=== PATIENT | male | born 1955 | race Caucasian/White ===

== ENCOUNTER 2017-06-19 09:24 | Emergency (ER) | payer BC ==
[~2017-06-19] VITALS: Ht 193 cm; Wt 90.7 kg
[~2017-06-19 09:24] MED LIST: AMOXICILLIN500 MG PO
[2017-06-19] MEDS ORDERED: KEFLEX500 M1 PO (09:37)
[2017-06-19] MEDS ORDERED: NAPROSYN500 MG PO (09:37)
== END 2017-06-19 09:47 | disposition home or self-care (01) ==
LOC: ED 09:24
DX: S61.412A Laceration without foreign body of left hand, initial encounter (principal); R03.0 Elevated blood-pressure reading, without diagnosis of hypertension; Z23 Encounter for immunization; W45.8XXA Other foreign body or object entering through skin, initial encounter; Y93.89 Activity, other specified; Y92.89 Other specified places as the place of occurrence of the external cause; Y99.8 Other external cause status

== ENCOUNTER → 2017-12-03 | Day surgery (SDC) | payer BC ==
[~2017-12-03] VITALS: Ht 187.9 cm; Wt 90.7 kg
[~2017-12-03] MED LIST changes: +ASPIRIN81 M1 PO; +CYCLOBENZAPRINE10 MG PO; +KEFLEX500 M1 PO; +LOSARTAN-HCTZ1 EACH PO; +NAPROSYN500 MG PO; +TOPCARE OMEPRAZ20 MG PO
--- NOTE | ~2017-12-03 | PROC NOTE ---
[place], [place] PROCEDURE NOTE NAME: DAVE HAQ [facility] #: [id number] UNIT #: [id number] ROOM: DOCTOR: ROBY LANDEROS MD BIRTHDATE: [birth year] DOS: PROCEDURES: 1. Esophagogastroduodenoscopy and biopsy. 2. Colonoscopy. INDICATIONS: GERD and colon cancer screening. An informed consent was obtained from the patient after indication of procedure, the alternatives and potential complications were explained to him. PROCEDURE MEDICATIONS: Sedation was administered by Anesthesiology Department. SCOPE USED: For upper endoscopy was Olympus diagnostic upper endoscope GIF-180, depth of insertion was to the descending duodenum. With the colonoscopy, the scope used was Olympus pediatric colonoscope variable stiffness GIF-180, depth of insertion was to the cecum, which was identified by the usual landmarks, appendiceal orifice, ileocecal valve and triangular fold, in addition to transillumination in the right lower quadrant. FINDINGS: After adequate sedation, the patient was placed in left lateral decubitus position. Rectal examination showed normal sphincter tone and no external hemorrhoids. After adequate sedation, the patient was placed in left lateral decubitus position. Upper endoscopy was performed first. The scope was introduced under direct visualization through the upper esophageal sphincter into the esophagus. Esophageal mucosa appeared normal with no ulcerations or strictures. Lower esophageal sphincter was identified at 38 cm from incisors with normal appearing Z line. The stomach was then intubated and gastric mucosa inspected. Moderate gastritis was seen. No discrete ulcers or active bleeding. A CLOtest was performed from the gastric antrum and body. On retroflexed views in fundus, no hiatal hernia was seen. Pylorus was intubated easily. The duodenal bulb and descending duodenum were within normal range. Scope was then withdrawn after the stomach was decompressed. We then proceeded with the colonoscopy. Rectal examination showed a diminished sphincter tone and no external hemorrhoids. Scope was introduced into the rectum, then advanced in to the cecum without difficulty. The prep was adequate. Moderate left-sided diverticular disease was noted. The remaining colon mucosa appeared otherwise normal with no evidence of polyps, ulcerations or obstructing lesions. Retroflexed views in the rectum showed grade 1 internal hemorrhoids. The scope was then withdrawn after the rectum was decompressed. The patient tolerated the procedures well. IMPRESSION: 1. Moderate gastritis, CLOtest. 2. Moderate left-sided diverticular disease. 3. Small internal hemorrhoids. 4. Normal colon mucosa otherwise. PLAN: We will review the BONITA test results and treat the patient accordingly. Repeat screening colonoscopy is advised in 10 years. Office followup will be [place], [place] PROCEDURE NOTE NAME: DAVE HAQ UNIT #: [id number] ROOM: DOCTOR: ROBY LANDEROS MD BIRTHDATE: [birth year] scheduled in 2-3 weeks. ROBY LANDEROS MD CM:PROCNOTE:PROCEDURE NOTE [id number] MARINE LANDEROS MD
[2017-12-03 07:00] VITALS: BP 158/83
[2017-12-03 08:50] VITALS: BP 114/69
[2017-12-03 09:05] VITALS: BP 117/70
[2017-12-03 09:20] VITALS: BP 136/72
== END | disposition home or self-care (01) ==
LOC: SDC 11-09 11:00
DX: Z12.11 Encounter for screening for malignant neoplasm of colon (principal); K29.70 Gastritis, unspecified, without bleeding; K57.30 Diverticulosis of large intestine without perforation or abscess without bleeding; K64.8 Other hemorrhoids; I10 Essential (primary) hypertension; K21.9 Gastro-esophageal reflux disease without esophagitis; Z98.890 Other specified postprocedural states; Z79.899 Other long term (current) drug therapy

== ENCOUNTER → 2018-03-25 | Outpatient (CLI) | payer BC ==
[2018-03-25 10:33] LABS: BASO % 0.5 % (0.0-1.0); EOS # 0.2 10*3/uL (0.0-0.4); EOS % 2.2 % (1.0-4.0); HEMATOCRIT 46.6 % (42.0-52.0); HEMOGLOBIN 15.3 g/dl (14.0-18.0); LYMPH % 23.7 % (27.0-41.0); MEAN CELL VOLUME 93.6 fl (80.0-94.0); MEAN CORPUSCULAR HGB 30.7 pg (27.0-31.0); MEAN CORPUSCULAR HGB CONC 32.8 g/dl (33.0-37.0); MEAN PLATELET VOLUME 11.5 fl (9.6-12.3); MONO # 0.7 10*3/uL (0.1-1.0); MONO % 7.7 % (3.0-9.0); NEUT # 5.6 10*3/uL (2.3-7.9); NEUT % 65.3 % (47.0-73.0); PLATELET COUNT AUTOMATED 205 10*3/uL (130-400); RED BLOOD COUNT 4.98 10*6/uL (4.50-5.90); RED CELL DISTRI WIDTH 12.9 % (0-14.5); WHITE BLOOD COUNT 8.5 10*3/uL (4.8-10.8)
[2018-03-25 10:51] LABS: ALBUMIN 3.8 gm/dl (3.1-4.5); ALKALINE PHOSPHATASE 56 U/L (45-117); BUN 20 mg/dl (7-24); CHLORIDE 105 mmol/L (98-107); CHOLESTEROL 202 mg/dL (<200); CREATININE 1.18 mg/dL (0.70-1.30); HDL CHOLESTEROL 37 mg/dl (40-60); LDL CHOLESTEROL 130 mg/dL (9-159); POTASSIUM 4.1 mmol/L (3.5-5.1); SGOT/AST 16 IU/L (3-35); SGPT/ALT 30 U/L (12-78); SODIUM 141 mmol/L (136-145); TOTAL PROTEIN 7.4 gm/dL (6.4-8.2); TRIGLYCERIDES 175 mg/dl (<150); VLDL CHOLESTEROL 35 mg/dL (6-40)
== END | disposition home or self-care (01) ==
LOC: LAB 09:48
PROVIDERS: Family Medicine
DX: Z11.59 Encounter for screening for other viral diseases (principal); I10 Essential (primary) hypertension

== ENCOUNTER → 2019-04-12 | Outpatient (CLI) | payer BC ==
[2019-04-12 13:33] LABS: BASO % 0.3 % (0.0-1.0); EOS # 0.2 10*3/uL (0.0-0.4); EOS % 2.5 % (1.0-4.0); HEMATOCRIT 45.7 % (42.0-52.0); HEMOGLOBIN 14.7 g/dl (14.0-18.0); LYMPH # 1.9 10*3/uL (1.3-4.4); LYMPH % 21.4 % (27.0-41.0); MEAN CELL VOLUME 96.2 fl (80.0-94.0); MEAN CORPUSCULAR HGB 30.9 pg (27.0-31.0); MEAN CORPUSCULAR HGB CONC 32.2 g/dl (33.0-37.0); MEAN PLATELET VOLUME 11.2 fl (9.6-12.3); MONO # 0.7 10*3/uL (0.1-1.0); MONO % 7.5 % (3.0-9.0); NEUT # 5.9 10*3/uL (2.3-7.9); NEUT % 67.8 % (47.0-73.0); PLATELET COUNT AUTOMATED 218 10*3/uL (130-400); RED BLOOD COUNT 4.75 10*6/uL (4.50-5.90); RED CELL DISTRI WIDTH 12.6 % (0-14.5); WHITE BLOOD COUNT 8.6 10*3/uL (4.8-10.8)
[2019-04-12 13:59] LABS: ALBUMIN 3.8 gm/dl (3.1-4.5); ALKALINE PHOSPHATASE 57 U/L (45-117); BUN 16 mg/dl (7-24); CHLORIDE 105 mmol/L (98-107); CHOLESTEROL 187 mg/dL (<200); CREATININE 1.09 mg/dL (0.70-1.30); HDL CHOLESTEROL 35 mg/dl (40-60); LDL CHOLESTEROL 104 mg/dL (9-159); POTASSIUM 4.1 mmol/L (3.5-5.1); SGOT/AST 16 IU/L (3-35); SGPT/ALT 25 U/L (12-78); SODIUM 141 mmol/L (136-145); TOTAL PROTEIN 7.4 gm/dL (6.4-8.2); TRIGLYCERIDES 238 mg/dl (<150); VLDL CHOLESTEROL 48 mg/dL (6-40)
[2019-04-12 14:05] LABS: FREE T4 1.01 ng/dl (0.76-1.46)
[2019-04-12 14:22] LABS: VITAMIN D, 25-HYDROXY 25.2 ng/mL (30-100)
== END | disposition home or self-care (01) ==
LOC: LAB 13:00
PROVIDERS: Internal Medicine
DX: Z13.1 Encounter for screening for diabetes mellitus (principal); Z13.21 Encounter for screening for nutritional disorder; Z13.220 Encounter for screening for lipoid disorders; I10 Essential (primary) hypertension; M47.812 Spondylosis without myelopathy or radiculopathy, cervical region

== ENCOUNTER → 2019-05-12 | Outpatient (CLI) | payer BC | END | disposition home or self-care (01) | LOC: LAB 09:00 | DX: R97.20 Elevated prostate specific antigen [PSA] (principal) ==

== ENCOUNTER → 2019-11-10 | Outpatient (CLI) | payer BC | END | disposition home or self-care (01) | LOC: LAB 08:27 | DX: R97.20 Elevated prostate specific antigen [PSA] (principal) ==

== ENCOUNTER → 2020-04-20 | Outpatient (CLI) | payer BC ==
[2020-04-20 08:08] LABS: BASO % 0.3 % (0.0-1.0); EOS # 0.3 10*3/uL (0.0-0.4); EOS % 3.3 % (1.0-4.0); HEMATOCRIT 47.7 % (42.0-52.0); LYMPH # 1.4 10*3/uL (1.3-4.4); LYMPH % 18.9 % (27.0-41.0); MEAN CELL VOLUME 92.6 fl (80.0-94.0); MEAN CORPUSCULAR HGB 30.3 pg (27.0-31.0); MEAN CORPUSCULAR HGB CONC 32.7 g/dl (33.0-37.0); MEAN PLATELET VOLUME 11.1 fl (9.6-12.3); MONO # 0.5 10*3/uL (0.1-1.0); MONO % 6.9 % (3.0-9.0); NEUT # 5.3 10*3/uL (2.3-7.9); NEUT % 70.3 % (47.0-73.0); PLATELET COUNT AUTOMATED 206 10*3/uL (130-400); RED BLOOD COUNT 5.15 10*6/uL (4.50-5.90); RED CELL DISTRI WIDTH 12.4 % (0-14.5); WHITE BLOOD COUNT 7.6 10*3/uL (4.8-10.8)
[2020-04-20 08:28] LABS: ALBUMIN 3.7 gm/dl (3.1-4.5); ALKALINE PHOSPHATASE 67 U/L (45-117); BUN 16 mg/dl (7-24); CHLORIDE 110 mmol/L (98-107); CHOLESTEROL 181 mg/dL (<200); CREATININE 0.98 mg/dL (0.70-1.30); HDL CHOLESTEROL 39 mg/dl (40-60); LDL CHOLESTEROL 115 mg/dL (9-159); POTASSIUM 4.3 mmol/L (3.5-5.1); SGOT/AST 22 IU/L (3-35); SGPT/ALT 30 U/L (12-78); SODIUM 141 mmol/L (136-145); TOTAL PROTEIN 7.4 gm/dL (6.4-8.2); TRIGLYCERIDES 134 mg/dl (<150); VLDL CHOLESTEROL 27 mg/dL (6-40)
[2020-04-20 09:07] LABS: VITAMIN D, 25-HYDROXY 40.1 ng/mL (30-100)
== END | disposition home or self-care (01) ==
LOC: LAB 07:06
PROVIDERS: ATTEND Internal Medicine
DX: Z12.5 Encounter for screening for malignant neoplasm of prostate (principal); R53.81 Other malaise; E55.9 Vitamin D deficiency, unspecified; R74.8 Abnormal levels of other serum enzymes; R79.89 Other specified abnormal findings of blood chemistry; R70.0 Elevated erythrocyte sedimentation rate; R79.82 Elevated C-reactive protein (CRP); D51.9 Vitamin B12 deficiency anemia, unspecified

== ENCOUNTER → 2020-05-29 | Outpatient (CLI) | payer BC | END | disposition home or self-care (01) | LOC: LAB 15:17 | PROVIDERS: ATTEND Urology | DX: R97.20 Elevated prostate specific antigen [PSA] (principal) ==

== ENCOUNTER → 2020-07-08 | Outpatient (CLI) | payer BC | END | disposition home or self-care (01) | LOC: RAD 09:07 | PROVIDERS: ATTEND Urology | DX: N20.0 Calculus of kidney (principal) ==

== ENCOUNTER → 2020-07-18 | Outpatient (CLI) | payer BC ==
[2020-07-19 11:07] LABS: PROSTATE SPECIFIC AG FREE 0.65 ng/mL
== END | disposition home or self-care (01) ==
LOC: LAB 07-17 15:13
PROVIDERS: ATTEND Urology
DX: R97.20 Elevated prostate specific antigen [PSA] (principal)

== ENCOUNTER → 2021-01-13 | Outpatient (CLI) | payer BC | END | disposition home or self-care (01) | LOC: LAB 08:54 | PROVIDERS: ATTEND Urology | DX: R97.20 Elevated prostate specific antigen [PSA] (principal); N20.0 Calculus of kidney ==

== ENCOUNTER → 2021-03-16 | Outpatient (CLI) | payer BC ==
[2021-03-16 10:12] LABS: BASO % 0.4 % (0.0-1.0); EOS # 0.2 10*3/uL (0.0-0.4); EOS % 2.9 % (1.0-4.0); HEMATOCRIT 45.9 % (42.0-52.0); LYMPH % 25.8 % (27.0-41.0); MEAN CELL VOLUME 93.7 fl (80.0-94.0); MEAN CORPUSCULAR HGB 30.4 pg (27.0-31.0); MEAN CORPUSCULAR HGB CONC 32.5 g/dl (33.0-37.0); MEAN PLATELET VOLUME 11.5 fl (9.6-12.3); MONO # 0.6 10*3/uL (0.1-1.0); MONO % 7.3 % (3.0-9.0); NEUT # 4.8 10*3/uL (2.3-7.9); NEUT % 63.3 % (47.0-73.0); PLATELET COUNT AUTOMATED 201 10*3/uL (130-400); WHITE BLOOD COUNT 7.6 10*3/uL (4.8-10.8)
[2021-03-16 10:30] LABS: ALBUMIN 3.7 gm/dl (3.1-4.5); ALKALINE PHOSPHATASE 57 U/L (45-117); BUN 19 mg/dl (7-24); CHLORIDE 109 mmol/L (98-107); CHOLESTEROL 193 mg/dL (<200); CREATININE 0.94 mg/dL (0.70-1.30); LDL CHOLESTEROL 129 mg/dL (9-159); POTASSIUM 3.9 mmol/L (3.5-5.1); SGOT/AST 18 IU/L (3-35); SGPT/ALT 28 U/L (12-78); SODIUM 141 mmol/L (136-145); TOTAL PROTEIN 7.3 gm/dL (6.4-8.2); TRIGLYCERIDES 136 mg/dl (<150)
[2021-03-16 11:09] LABS: VITAMIN D, 25-HYDROXY 53.9 ng/mL (30-100)
[2021-03-18 14:07] LABS: PROSTATE SPECIFIC AG FREE 0.6 ng/mL; PROSTATE SPECIFIC AG, SERUM 3.9 ng/mL (0.0-4.0)
== END | disposition home or self-care (01) ==
LOC: LAB 09:10
PROVIDERS: Internal Medicine; ATTEND Urology
DX: Z00.00 Encounter for general adult medical examination without abnormal findings (principal); Z13.21 Encounter for screening for nutritional disorder; Z13.220 Encounter for screening for lipoid disorders; Z13.1 Encounter for screening for diabetes mellitus; Z12.5 Encounter for screening for malignant neoplasm of prostate; I10 Essential (primary) hypertension; E55.9 Vitamin D deficiency, unspecified; R97.20 Elevated prostate specific antigen [PSA]

== ENCOUNTER → 2021-09-17 | Outpatient (CLI) | payer OTHER | END | disposition home or self-care (01) | LOC: LAB 08:33 | PROVIDERS: ATTEND Urology | DX: R97.20 Elevated prostate specific antigen [PSA] (principal) ==

== ENCOUNTER → 2021-12-09 | Outpatient (CLI) | payer OTHER ==
[2021-12-12 17:06] LABS: FREE PSA 0.627 ng/mL (.)
== END | disposition home or self-care (01) ==
LOC: LAB 09:22
PROVIDERS: ATTEND Urology
DX: R97.20 Elevated prostate specific antigen [PSA] (principal)

== ENCOUNTER → 2022-04-27 | Outpatient (CLI) | payer OTHER ==
[2022-04-27 09:16] LABS: BASO % 0.2 % (0.0-1.0); EOS # 0.2 10*3/uL (0.0-0.4); EOS % 2.2 % (1.0-4.0); HEMATOCRIT 46.3 % (42.0-52.0); LYMPH # 1.8 10*3/uL (1.3-4.4); LYMPH % 18.1 % (27.0-41.0); MEAN CELL VOLUME 93.2 fl (80.0-94.0); MEAN CORPUSCULAR HGB CONC 33.3 g/dl (33.0-37.0); MEAN PLATELET VOLUME 10.7 fl (9.6-12.3); MONO # 0.6 10*3/uL (0.1-1.0); MONO % 6.4 % (3.0-9.0); NEUT % 72.7 % (47.0-73.0); PLATELET COUNT AUTOMATED 220 10*3/uL (130-400); RED BLOOD COUNT 4.97 10*6/uL (4.50-5.90); WHITE BLOOD COUNT 9.7 10*3/uL (4.8-10.8)
[2022-04-27 09:34] LABS: ALKALINE PHOSPHATASE 72 U/L (45-117); BUN 20 mg/dl (7-24); CHLORIDE 110 mmol/L (98-107); CHOLESTEROL 182 mg/dL (<200); CREATININE 1.07 mg/dL (0.70-1.30); FREE T4 0.97 ng/dl (0.76-1.46); LDL CHOLESTEROL 124 mg/dL (9-159); POTASSIUM 4.1 mmol/L (3.5-5.1); SGOT/AST 16 IU/L (3-35); SGPT/ALT 31 U/L (12-78); SODIUM 144 mmol/L (136-145); T3 UPTAKE 35 % (31-39); TOTAL PROTEIN 7.7 gm/dL (6.4-8.2); TRIGLYCERIDES 133 mg/dl (<150)
[2022-04-27 10:25] LABS: VITAMIN D, 25-HYDROXY 42.4 ng/mL (30-100)
== END ==
LOC: LAB 08:55
PROVIDERS: ATTEND Internal Medicine
DX: Z13.89 Encounter for screening for other disorder (principal); Z13.0 Encounter for screening for diseases of the blood and blood-forming organs and certain disorders involving the immune mechanism; Z13.6 Encounter for screening for cardiovascular disorders; Z13.29 Encounter for screening for other suspected endocrine disorder; Z13.21 Encounter for screening for nutritional disorder; Z13.228 Encounter for screening for other metabolic disorders; E55.9 Vitamin D deficiency, unspecified

== ENCOUNTER → 2022-07-17 | Outpatient (CLI) | payer OTHER | END | disposition home or self-care (01) | LOC: LAB 07:48 | PROVIDERS: ATTEND Urology | DX: R97.20 Elevated prostate specific antigen [PSA] (principal) ==

== ENCOUNTER → 2023-01-16 | Outpatient (CLI) | payer OTHER ==
[2023-01-16 07:43] LABS: BASO % 0.3 % (0.0-1.0); EOS # 0.3 10*3/uL (0.0-0.4); EOS % 2.7 % (1.0-4.0); HEMATOCRIT 47.7 % (42.0-52.0); LYMPH % 21.7 % (27.0-41.0); MEAN CORPUSCULAR HGB 30.7 pg (27.0-31.0); MEAN CORPUSCULAR HGB CONC 32.3 g/dl (33.0-37.0); MEAN PLATELET VOLUME 10.9 fl (9.6-12.3); MONO # 0.6 10*3/uL (0.1-1.0); MONO % 6.9 % (3.0-9.0); NEUT # 6.3 10*3/uL (2.3-7.9); PLATELET COUNT AUTOMATED 230 10*3/uL (130-400); RED BLOOD COUNT 5.02 10*6/uL (4.50-5.90); RED CELL DISTRI WIDTH 13.4 % (0-14.5); WHITE BLOOD COUNT 9.3 10*3/uL (4.8-10.8)
[2023-01-16 08:21] LABS: ALKALINE PHOSPHATASE 74 U/L (46-116); BUN 14 mg/dl (9-23); CHLORIDE 109 mmol/L (98-107); CHOLESTEROL 180 mg/dL (<200); FREE T4 1.08 ng/dl (0.89-1.76); LDL CHOLESTEROL 109 mg/dL (9-159); POTASSIUM 4.1 mmol/L (3.4-5.1); SGPT/ALT 19 U/L (10-49); THYROID STIM HORMONE (HS) 2.516 uIU/ml (0.550-4.780); TOTAL PROTEIN 7.4 gm/dL (6.0-8.0); TRIGLYCERIDES 185 mg/dl (<150)
[2023-01-16 08:55] LABS: VITAMIN D, 25-HYDROXY 48.3 ng/mL (30-100)
== END | disposition home or self-care (01) ==
LOC: LAB 07:18
PROVIDERS: Internal Medicine; ATTEND Urology
DX: I25.10 Atherosclerotic heart disease of native coronary artery without angina pectoris (principal); I10 Essential (primary) hypertension; R97.20 Elevated prostate specific antigen [PSA]

== ENCOUNTER → 2023-07-14 | Outpatient (CLI) | payer OTHER | END | disposition home or self-care (01) | LOC: LAB 07:33 | PROVIDERS: ATTEND Urology | DX: R97.20 Elevated prostate specific antigen [PSA] (principal) ==

== ENCOUNTER → 2023-08-19 | Outpatient (CLI) | payer OTHER | END | disposition home or self-care (01) | LOC: CARD 00:14 | PROVIDERS: ATTEND Internal Medicine | DX: I65.23 Occlusion and stenosis of bilateral carotid arteries (principal); I34.0 Nonrheumatic mitral (valve) insufficiency ==

== ENCOUNTER → 2023-08-28 | Outpatient (CLI) | payer OTHER | END | disposition home or self-care (01) | LOC: LAB 08:07 | PROVIDERS: ATTEND Urology | DX: R97.20 Elevated prostate specific antigen [PSA] (principal) ==

== ENCOUNTER → 2023-09-01 | Outpatient (CLI) | payer OTHER ==
[2023-09-02 11:08] LABS: ANTI-DSDNA ANTIBODIES <1 IU/mL (0-9)
[2023-09-02 12:08] LABS: CCP ANTIBODIES IGG/IGA 8 units (0-19)
[2023-09-02 14:08] LABS: ANTI-SMOOTH MUSCLE ANTIBODY 10 Units (0-19)
== END | disposition home or self-care (01) ==
LOC: LAB 09:33
PROVIDERS: ATTEND Internal Medicine
DX: Z13.0 Encounter for screening for diseases of the blood and blood-forming organs and certain disorders involving the immune mechanism (principal); Z13.21 Encounter for screening for nutritional disorder; Z13.1 Encounter for screening for diabetes mellitus; Z13.220 Encounter for screening for lipoid disorders; Z13.228 Encounter for screening for other metabolic disorders; Z13.6 Encounter for screening for cardiovascular disorders; Z13.89 Encounter for screening for other disorder; R53.81 Other malaise; R79.89 Other specified abnormal findings of blood chemistry; E55.9 Vitamin D deficiency, unspecified; D51.9 Vitamin B12 deficiency anemia, unspecified; E03.9 Hypothyroidism, unspecified; D52.9 Folate deficiency anemia, unspecified; M06.9 Rheumatoid arthritis, unspecified

== ENCOUNTER → 2023-12-09 | Outpatient (CLI) | payer OTHER ==
[2023-12-09 07:59] LABS: BASO % 0.4 % (0.0-1.0); EOS # 0.3 10*3/uL (0.0-0.4); EOS % 2.6 % (1.0-4.0); HEMATOCRIT 46.5 % (42.0-52.0); LYMPH # 2.2 10*3/uL (1.3-4.4); LYMPH % 20.5 % (27.0-41.0); MEAN CELL VOLUME 92.4 fl (80.0-94.0); MEAN CORPUSCULAR HGB 29.8 pg (27.0-31.0); MEAN CORPUSCULAR HGB CONC 32.3 g/dl (33.0-37.0); MONO # 0.6 10*3/uL (0.1-1.0); MONO % 5.9 % (3.0-9.0); NEUT # 7.6 10*3/uL (2.3-7.9); PLATELET COUNT AUTOMATED 246 10*3/uL (130-400); RED BLOOD COUNT 5.03 10*6/uL (4.50-5.90); RED CELL DISTRI WIDTH 12.8 % (0-14.5); WHITE BLOOD COUNT 10.8 10*3/uL (4.8-10.8)
[2023-12-09 08:17] LABS: ALKALINE PHOSPHATASE 82 U/L (46-116); BUN 17 mg/dl (9-23); CHLORIDE 105 mmol/L (98-107); CHOLESTEROL 186 mg/dL (<200); LDL CHOLESTEROL 120 mg/dL (9-159); POTASSIUM 3.9 mmol/L (3.4-5.1); SGPT/ALT 26 U/L (5-49); TOTAL PROTEIN 7.5 gm/dL (6.0-8.0); TRIGLYCERIDES 175 mg/dl (<150)
[2023-12-09 09:00] LABS: VITAMIN D, 25-HYDROXY 43.8 ng/mL (30-100)
== END | disposition home or self-care (01) ==
LOC: LAB 07:08
PROVIDERS: ATTEND Internal Medicine
DX: M47.817 Spondylosis without myelopathy or radiculopathy, lumbosacral region (principal); M25.78 Osteophyte, vertebrae; I10 Essential (primary) hypertension; J44.9 Chronic obstructive pulmonary disease, unspecified; E11.9 Type 2 diabetes mellitus without complications

== ENCOUNTER → 2023-12-24 | Outpatient (CLI) | payer OTHER | END | disposition home or self-care (01) | LOC: RAD 00:54 → MRI 10:00 | PROVIDERS: ATTEND Internal Medicine | DX: Z13.820 Encounter for screening for osteoporosis (principal); M81.0 Age-related osteoporosis without current pathological fracture; M47.816 Spondylosis without myelopathy or radiculopathy, lumbar region ==

== ENCOUNTER 2024-03-27 13:07 | Inpatient (IN) | payer OTHER, MEDICARE ==
[~2024-03-27] VITALS: Ht 193 cm; Wt 89.6 kg
[2024-03-27 13:21] VITALS: BP 186/82
[2024-03-27] MEDS ORDERED: AMLODIPINE BESY10 MG PO (13:24)
[2024-03-27] MEDS ORDERED: ATENOLOL25 MG PO (13:25)
[2024-03-27 13:37] LABS: BASO % 0.3 % (0.0-1.0); EOS # 0.2 10*3/uL (0.0-0.4); EOS % 1.5 % (1.0-4.0); HEMATOCRIT 46.7 % (42.0-52.0); LYMPH # 2.2 10*3/uL (1.3-4.4); LYMPH % 18.6 % (27.0-41.0); MEAN CELL VOLUME 91.6 fl (80.0-94.0); MEAN CORPUSCULAR HGB 30.2 pg (27.0-31.0); MEAN PLATELET VOLUME 10.8 fl (9.6-12.3); MONO # 0.7 10*3/uL (0.1-1.0); MONO % 6.4 % (3.0-9.0); NEUT # 8.4 10*3/uL (2.3-7.9); NEUT % 72.9 % (47.0-73.0); PLATELET COUNT AUTOMATED 219 10*3/uL (130-400); RED CELL DISTRI WIDTH 12.7 % (0-14.5); WHITE BLOOD COUNT 11.5 10*3/uL (4.8-10.8)
[2024-03-27 13:48] LABS: ACT PARTIAL THROMBO TIME 31.9 SECONDS (20.0-32.1)
[2024-03-27 13:58] LABS: ALKALINE PHOSPHATASE 74 U/L (46-116); BUN 15 mg/dl (9-23); CHLORIDE 106 mmol/L (98-107); POTASSIUM 3.8 mmol/L (3.4-5.1); SGPT/ALT 16 U/L (5-49); TOTAL PROTEIN 7.5 gm/dL (6.0-8.0)
[2024-03-27 14:25] VITALS: BP 138/52
[2024-03-27] MEDS ORDERED: SILDENAFIL20 M1 PO (15:21)
[2024-03-27] MEDS ORDERED: IOHEXOL 350 MG/ML 100 ML VIAL IV ONE (16:15)
[2024-03-27] MEDS ORDERED: SODIUM CHLORIDE 0.9% 100 ML BAG IV ONE (16:15)
[2024-03-27] MEDS ORDERED: Clopidogrel Hydrogen Sulfate 75 MG TAB PO ONE (16:20)
[2024-03-27] MEDS ORDERED: ASPIRIN 325 MG TAB PO ONE (16:20)
[2024-03-27 17:05] VITALS: BP 130/61
[2024-03-27 20:00] VITALS: BP 139/59
[2024-03-28] VITALS: BP 134/89; BP 135/60
[2024-03-28] MEDS ORDERED: SODIUM CHLORIDE 0.9% 100 ML BAG IV ONE (06:40)
[2024-03-28 06:43] LABS: CHOLESTEROL 167 mg/dL (<200); LDL CHOLESTEROL 108 mg/dL (9-159); TRIGLYCERIDES 154 mg/dl (<150)
[2024-03-28 08:00] VITALS: BP 126/82
[2024-03-28] MEDS ORDERED: Clopidogrel Hydrogen Sulfate 75 MG TAB PO SCH (10:00)
[2024-03-28] MEDS ORDERED: ATENOLOL 25 MG TAB PO SCH (10:00)
[2024-03-28] MEDS ORDERED: IOHEXOL 350 MG/ML 100 ML VIAL IV ONE (10:00)
[2024-03-28] MEDS ORDERED: ASPIRIN ENTERIC COATED 81 MG TAB PO SCH (10:00)
[2024-03-28] MEDS ORDERED: ATORVASTATIN CALCIUM 40 MG TABLET PO SCH (10:00)
[2024-03-28] MEDS ORDERED: amLODIPine besylate 10 MG TAB PO SCH (10:00)
[2024-03-28 12:00] VITALS: BP 127/80
[2024-03-28 16:00] VITALS: BP 130/53
[2024-03-28 20:00] VITALS: BP 134/60
[2024-03-29] VITALS: BP 128/54
[2024-03-29 06:28] LABS: BASO % 0.3 % (0.0-1.0); EOS # 0.2 10*3/uL (0.0-0.4); EOS % 2.1 % (1.0-4.0); HEMATOCRIT 43.3 % (42.0-52.0); LYMPH # 2.4 10*3/uL (1.3-4.4); LYMPH % 24.8 % (27.0-41.0); MEAN CELL VOLUME 90.6 fl (80.0-94.0); MEAN CORPUSCULAR HGB 30.1 pg (27.0-31.0); MEAN CORPUSCULAR HGB CONC 33.3 g/dl (33.0-37.0); MEAN PLATELET VOLUME 11.2 fl (9.6-12.3); MONO # 0.7 10*3/uL (0.1-1.0); MONO % 7.2 % (3.0-9.0); NEUT # 6.3 10*3/uL (2.3-7.9); NEUT % 65.3 % (47.0-73.0); PLATELET COUNT AUTOMATED 196 10*3/uL (130-400); RED BLOOD COUNT 4.78 10*6/uL (4.50-5.90); RED CELL DISTRI WIDTH 12.9 % (0-14.5); WHITE BLOOD COUNT 9.6 10*3/uL (4.8-10.8)
[2024-03-29 06:36] LABS: BUN 13 mg/dl (9-23); CHLORIDE 107 mmol/L (98-107); POTASSIUM 3.9 mmol/L (3.4-5.1)
[2024-03-29 08:00] VITALS: BP 146/60
[2024-03-29] MEDS ORDERED: PEPCID40 MG PO (08:48)
[2024-03-29] MEDS ORDERED: ATORVASTATIN CA40 M1 PO (08:48)
[2024-03-29] MEDS ORDERED: ASPIRIN ADULT L81 M2 PO (08:48)
[2024-03-29] MEDS ORDERED: CLOPIDOGREL75 MG PO (08:48)
== END 2024-03-29 11:01 | disposition home or self-care (01) | DRG 66 ==
LOC: ED 13:07 → EDHOLD 15:34 → 4E 15:34 → EDHOLD 15:35 → 4E 17:30
PROVIDERS: Internal Medicine; ADMIT Internal Medicine; ATTEND Internal Medicine
DX: I63.9 Cerebral infarction, unspecified (principal); K21.9 Gastro-esophageal reflux disease without esophagitis; I10 Essential (primary) hypertension; G89.29 Other chronic pain; M47.896 Other spondylosis, lumbar region; M54.9 Dorsalgia, unspecified; I08.1 Rheumatic disorders of both mitral and tricuspid valves; E78.2 Mixed hyperlipidemia; Z79.899 Other long term (current) drug therapy; Z85.46 Personal history of malignant neoplasm of prostate; Z79.01 Long term (current) use of anticoagulants; Z82.49 Family history of ischemic heart disease and other diseases of the circulatory system

== ENCOUNTER → 2024-05-18 | Outpatient (CLI) | payer OTHER, MEDICARE ==
[~2024-05-18] MED LIST changes: +AMLODIPINE BESY10 MG PO; +ASPIRIN ADULT L81 M2 PO; +ATENOLOL25 MG PO; +ATORVASTATIN CA40 M1 PO; +CLOPIDOGREL75 MG PO; +PEPCID40 MG PO; +SILDENAFIL20 M1 PO
== END | disposition home or self-care (01) ==
LOC: LAB 08:12
PROVIDERS: ATTEND Urology
DX: C61 Malignant neoplasm of prostate (principal)

== ENCOUNTER → 2024-08-14 | Outpatient (CLI) | payer MEDICARE | END | disposition home or self-care (01) | LOC: LAB 07:49 | PROVIDERS: ATTEND Urology | DX: C61 Malignant neoplasm of prostate (principal) ==

== ENCOUNTER → 2025-02-26 | Outpatient (CLI) | payer MEDICARE | END | disposition home or self-care (01) | LOC: LAB 08:09 | PROVIDERS: ATTEND Urology | DX: C61 Malignant neoplasm of prostate (principal) ==

== ENCOUNTER → 2025-07-06 | Outpatient (CLI) | payer MEDICARE | END | disposition home or self-care (01) | LOC: LAB 08:22 | PROVIDERS: ATTEND Urology | DX: C61 Malignant neoplasm of prostate (principal) ==